=== PATIENT | female | born 1965 | race Caucasian/White ===

== ENCOUNTER 2018-03-23 17:00 | Emergency (ER) | payer BC ==
--- NOTE | 2018-03-23 17:54 | EDPHY ---
H & P Time Seen by Provider: 03/23/18 17:53 HPI/ROS: Chief complaint. Abdominal pain HPI. Patient is a 57-year-old female with left flank and left lower quadrant pain that began this morning. She tells me she just can't get comfortable. Not worse with movement. She has had previous kidney stones and this is similar to previous kidney stones. She has also had previous lithotripsy. Her symptoms of discomfort increase with urination. However no dysuria. Nausea without vomiting. No fever. No chest discomfort or trouble breathing. Patient is visiting from [facility] Constitutional. no fever/chills, no weakness Eyes. no problems with vision ENT. no sore throat, no nasal drainage Cardiovascular. no chest pain Respiratory. no shortness of breath, no cough Abdominal. Flank and left lower quadrant pain with nausea . Urinary urgency MS. no calf pain/swelling, no neck/back pain, no joint pain Skin. no rash Lymph. no swollen glands Neuro. no headache, no dizziness, no difficulty walking or with speech Past Medical/Surgical History: Kidney stones and uterine ablation Social History: , nonsmoker, no alcohol Smoking Status: Never smoked Physical Exam: General Appearance: Alert pleasant well-developed female moderate distress vital signs are stable Eyes: Pupils equal and round no pallor or injection. ENT, Mouth: Mucous membranes are moist. Respiratory: There are no retractions, lungs are clear to auscultation. Cardiovascular: Regular rate and rhythm. Gastrointestinal: Abdomen is soft and nontender to palpation. The patient shows me left flank and left lower quadrant discomfort but it is not worse with palpation. No masses. Normal bowel sounds Neurological: Awake and alert, sensory and motor exams grossly normal. Skin: Warm and dry, no rashes. Musculoskeletal: Neck is supple nontender. Extremities symmetrical, full range of motion. Psychiatric: Patient is oriented X 3, there is no agitation. Constitutional: Initial Vital Signs Temperature (C) 37.1 C 03/23/18 17:04 Heart Rate 89 03/23/18 17:04 Respiratory Rate 16 03/23/18 17:04 Blood Pressure 180/92 H 03/23/18 17:04 O2 Sat (%) 98 03/23/18 17:04 O2 Delivery Mode Room Air Allergies/Adverse Reactions: promethazine Allergy (Verified 03/23/18 17:03) Home Medications: Medication Instructions Recorded Lisinopril 03/23/18 Ondansetron Odt [Zofran Odt] 4 mg PO Q4PRN PRN #4 tab 03/23/18 Seroquel 03/23/18 Simvastatin 03/23/18 oxyCODONE/APAP 5/325 [Percocet 1 tab PO Q4-6PRN PRN #10 tab 03/23/18 5/325] Medical Decision Making - Diagnostics Imaging Results: Imaging Impressions Abdomen/Pelvis CT 03/23/18 18:23 IMPRESSION: 1. Bilateral nephrolithiasis with mild left hydroureteronephrosis. No definite stone is seen within the renal collecting system or bladder, in these findings may be secondary to recently passed stone. Calcific density at the region of the left UVJ has imaging characteristics similar to other adjacent pelvic phleboliths. Dr. Berumen was notified of these findings by telephone at 7:10 PM on 03/23/[address] abdomen and pelvis shows mild left hydronephrosis. No definite stone is seen as there is apparently adjacent pelvic phleboliths. There is evidence of a recently passed stone or a small 3 mm stone at the left UVJ Reviewed by me and discussed with radiologist Procedures: IV normal saline. Morphine for pain. Zofran for nausea ED Course/Re-evaluation: Re-evaluation 7:05 p.m.. Patient is stable. Did she receive pain medication at help somewhat however she continues to have discomfort. She will be further medication for pain Re-evaluation at 8:00 p.m.. Patient is stable. She is quite much more comfortable at this point. She is offered admission as she is here bring her daughter back to school. She feels that she would be more comfortable being treated as an outpatient. She is encouraged to return for worsening symptoms. She has we also discussed treatment plan including criteria for return and importance of follow-up and further evaluation. She expresses understanding and agreement Differential Diagnosis: I considered pyelonephritis, kidney stone, bowel obstruction - Data Points Laboratory Results: Laboratory Results 03/23/18 18:50 03/23/18 18:50 03/23/18 03/23/18 03/23/18 18:50 18:50 17:07 WBC 12.14 10^3/uL H 10^3/uL (3.80-9.50) RBC 4.20 10^6/uL 10^6/uL (4.18-5.33) Hgb 13.4 g/dL g/dL (12.6-16.3) Hct 40.3 % % (38.0-47.0) MCV 96.0 fL fL (81.5-99.8) MCH 31.9 pg pg (27.9-34.1) MCHC 33.3 g/dL g/dL (32.4-36.7) RDW 14.3 % % (11.5-15.2) Plt Count 359 10^3/uL 10^3/uL (150-400) MPV 8.7 fL fL (8.7-11.7) Neut % (Auto) 62.4 % % (39.3-74.2) Lymph % (Auto) 21.3 % % (15.0-45.0) Wayne % (Auto) 7.6 % % (4.5-13.0) Eos % (Auto) 7.6 % % (0.6-7.6) Baso % (Auto) 0.4 % % (0.3-1.7) Nucleat RBC Rel Count 0.0 % % (0.0-0.2) Absolute Neuts (auto) 7.58 10^3/uL H 10^3/uL (1.70-6.50) Absolute Lymphs (auto) 2.59 10^3/uL 10^3/uL (1.00-3.00) Absolute Monos (auto) 0.92 10^3/uL H 10^3/uL (0.30-0.80) Absolute Eos (auto) 0.92 10^3/uL H 10^3/uL (0.03-0.40) Absolute Basos (auto) 0.05 10^3/uL 10^3/uL (0.02-0.10) Absolute Nucleated RBC 0.00 10^3/uL 10^3/uL (0-0.01) Immature Gran % 0.7 % % (0.0-1.1) Immature Gran # 0.08 10^3/uL 10^3/uL (0.00-0.10) Sodium 141 mEq/L mEq/L (135-145) Potassium 4.2 mEq/L mEq/L (3.3-5.0) Chloride 106 mEq/L mEq/L (97-110) Carbon Dioxide 23 mEq/l mEq/l (22-31) Anion Gap 12 mEq/L mEq/L (8-16) BUN 16 mg/dL mg/dL (7-23) Creatinine 0.8 mg/dL mg/dL (0.6-1.0) Estimated GFR > 60 Glucose 95 mg/dL mg/dL (70-100) Calcium 9.9 mg/dL mg/dL (8.5-10.4) Urine Color Urine Appearance Urine pH Ur Specific [place] Urine Protein Urine Ketones Urine Blood Urine Nitrate Urine Bilirubin Urine Urobilinogen Ur Leukocyte Esterase Urine RBC 15-25 /hpf H /hpf (0-3) Urine WBC 5-10 /hpf H /hpf (0-3) Ur Epithelial Cells 2+ /lpf H /lpf (NONE-1+) Urine Bacteria Urine Mucus TRACE /lpf /lpf (NONE-1+) Urine Glucose 03/23/18 17:07 WBC RBC Hgb Hct MCV MCH MCHC RDW Plt Count MPV Neut % (Auto) Lymph % (Auto) Wayne % (Auto) Eos % (Auto) Baso % (Auto) Nucleat RBC Rel Count Absolute Neuts (auto) Absolute Lymphs (auto) Absolute Monos (auto) Absolute Eos (auto) Absolute Basos (auto) Absolute Nucleated RBC Immature Gran % Immature Gran # Sodium Potassium Chloride Carbon Dioxide Anion Gap BUN Creatinine Estimated GFR Glucose Calcium Urine Color YELLOW Urine Appearance HAZY Urine pH 5.0 (5.0-7.5) Ur Specific [place] 1.026 (1.002-1.030) Urine Protein NEGATIVE (NEGATIVE) Urine Ketones NEGATIVE (NEGATIVE) Urine Blood 2+ H (NEGATIVE) Urine Nitrate NEGATIVE (NEGATIVE) Urine Bilirubin NEGATIVE (NEGATIVE) Urine Urobilinogen NEGATIVE EU EU (0.2-1.0) Ur Leukocyte Esterase 1+ H (NEGATIVE) Urine RBC 15-25 /hpf H /hpf (0-3) Urine WBC 5-10 /hpf H /hpf (0-3) Ur Epithelial Cells 2+ /lpf H /lpf (NONE-1+) Urine Bacteria TRACE /hpf H /hpf (NONE SEEN) Urine Mucus TRACE /lpf /lpf (NONE-1+) Urine Glucose NEGATIVE (NEGATIVE) Medications Given: Discontinued Medications Sodium Chloride (Ns) 1,000 mls @ 0 mls/hr IV EDNOW ONE; Wide Open PRN Reason: Protocol Stop: 03/23/18 18:23 Last Admin: 03/23/18 18:49 Dose: 1,000 mls Ketorolac Tromethamine (Toradol) 30 mg IVP EDNOW ONE Stop: 03/23/18 19:11 Last Admin: 03/23/18 19:20 Dose: 30 mg Morphine Sulfate (Morphine) 6 mg IVP EDNOW ONE Stop: 03/23/18 18:23 Last Admin: 03/23/18 18:56 Dose: 6 mg Morphine Sulfate (Morphine) 6 mg IVP EDNOW ONE Stop: 03/23/18 19:09 Last Admin: 03/23/18 19:19 Dose: 6 mg Ondansetron HCl (Zofran) 4 mg IVP EDNOW ONE Stop: 03/23/18 18:23 Last Admin: 03/23/18 18:57 Dose: 4 mg Departure - Departure Disposition: Home, Routine, Self-Care Clinical Impression: Renal colic on left side Condition: Good Instructions: Kidney Stones (ED) Additional Instructions: Drink sufficient fluids to stay hydrated. Ibuprofen 600 mg every 6 hr for discomfort. Percocet in addition if necessary for discomfort. Zofran as needed for nausea Strain urine for the next 24 hr and save stone. Return for worsening symptoms. Follow up with your regular physician upon return home Referrals: NONE *PRIMARY CARE P,. [Primary Care Provider] - As per Instructions Prescriptions: Ondansetron Odt [Zofran Odt] 4 mg PO Q4PRN PRN #4 tab PRN Reason: Nausea/Vomiting, Use 1st oxyCODONE/APAP 5/325 [Percocet 5/325] 1 tab PO Q4-6PRN PRN #10 tab PRN Reason: Pain, Moderate
[2018-03-23] MEDS: NS 1,000 ML IV ONE (18:49)
[2018-03-23] MEDS: ONDANSETRON 4 MG/2 ML VIAL IVP ONE (18:57)
[2018-03-23 18:59] LABS: PLATELET COUNT 359 10^3/uL (150-400)
[2018-03-23] MEDS: KETOROLAC 30 MG/1 ML SDV IVP ONE (19:20)
[2018-03-23 19:47] VITALS: BP 139/78
== END 2018-03-23 20:18 | disposition home or self-care (01) ==
DX: N20.0 Calculus of kidney (principal); E86.9 Volume depletion, unspecified
CPT/HCPCS: 96374; J1885; J2270; J2405